=== PATIENT | male | born 1990 | race Caucasian/White ===

== ENCOUNTER → 2018-06-04 | Outpatient (CLI) | payer BC ==
[~2018-06-04] MED LIST: GADOBUTROL 10 ML VIAL IVP ONE
== END ==
LOC: FIMAGING 08:06
PROVIDERS: ATTEND Surgery
DX: I77.89 Other specified disorders of arteries and arterioles (principal); Q27.32 Arteriovenous malformation of vessel of lower limb
CPT/HCPCS: A9585; C8912